=== PATIENT | male | born 1990 | race Caucasian/White ===

== ENCOUNTER → 2024-05-11 | Outpatient (CLI) | payer OTHER, SELFPAY | LOC: M OUTALCOH 08:04 | PROVIDERS: ATTEND Psychiatry & Neurology Psychiatry | DX: Z03.89 Encounter for observation for other suspected diseases and conditions ruled out (principal); Z72.0 Tobacco use ==

== ENCOUNTER 2024-05-21 14:55 | Outpatient (RCR) | payer OTHER | END 2024-05-29 | LOC: M OUTALCOH 14:55 | PROVIDERS: ATTEND Psychiatry & Neurology Psychiatry | DX: Z03.89 Encounter for observation for other suspected diseases and conditions ruled out (principal); Z72.0 Tobacco use ==